=== PATIENT | male | born 1995 | race Caucasian/White ===

== ENCOUNTER 2021-09-09 19:02 | Outpatient (CLI) | payer MEDICAID | END 2021-09-09 19:03 | disposition critical access hospital (66) | LOC: EMS 19:02 | DX: R42 Dizziness and giddiness (principal); R55 Syncope and collapse; R61 Generalized hyperhidrosis; Z20.822 Contact with and (suspected) exposure to COVID-19 | CPT/HCPCS: A0425; A0427 ==

== ENCOUNTER 2021-09-09 19:38 | Emergency (ER) | payer MEDICAID ==
--- NOTE | 2021-09-09 21:19 | ED Physician Documentation ---
History of Present Illness - Stated complaint Stated Complaint: NEAR SYNCOPE - Chief complaint Chief Complaint: General - History obtained from History obtained from: Patient - History of Present Illness Timing: How many days ago (3) - Additonal information Additional information: 25-year-old Parth Byers developed COVID for second time 2 weeks ago he has tested negative about 6 days ago and he has developed some fatigue and exertional dyspnea and is feeling lightheaded and dizzy. He is wondering if either has a bit of a panic attack or if he might have pericarditis. He denies any chest pain he does acknowledge shortness of breath and easily fatigued. He has been immunized previously and when he had COVID the first time he had a problem with headaches this time around he had fever and aches. Review of Systems Constitutional: denies: Fever Eyes: denies: Decreased vision Ears: denies: Ear pain Nose: denies: Rhinorrhea / runny nose, Congestion Throat: denies: Sore throat Cardiac: denies: Chest pain / pressure, Palpitations, Pedal edema, Calf pain Respiratory: reports: Dyspnea. denies: Cough, Hemoptysis, Wheezing GI: denies: Abdominal Pain, Nausea, Vomiting, Constipation, Diarrhea : denies: Dysuria, Frequency Skin: denies: Rash Musculoskeletal: denies: Neck pain, Back pain, Extremity pain Neurologic: reports: Headache. denies: Generalized weakness, Focal weakness, Numbness, Head injury, LOC PD PAST MEDICAL HISTORY - Allergies Allergies/Adverse Reactions: Allergies Allergy/AdvReac Type Severity Reaction Status Date / Time No Known Drug Allergies Allergy Verified 09/09/21 19:36 PD ED PE NORMAL - Vitals Vital signs reviewed: Yes (hypertensive mild ) - General General: Alert and oriented X 3, No acute distress, Well developed/nourished - HEENT HEENT: Atraumatic, PERRL, EOMI - Neck Neck: Supple, no meningeal sign, No bony TTP - Cardiac Cardiac: RRR, No murmur - Respiratory Respiratory: No respiratory distress, Clear bilaterally - Abdomen Abdomen: Normal bowel sounds, Soft, Non tender, Non distended, No organomegaly - Back Back: No CVA TTP, No spinal TTP - Derm Derm: Normal color, Warm and dry, No rash - Extremities Extremities: No deformity, No edema - Neuro Neuro: Alert and oriented X 3, despatching and receiving clerk 2-12 intact, No motor deficit, No sensory deficit, Normal speech Eye Opening: Spontaneous Motor: Obeys Commands Verbal: Oriented GCS Score: 15 - Psych Psych: Normal mood, Normal affect Results - Vitals Vitals: Vital Signs - 24 hr 09/09/21 09/09/21 09/09/21 19:32 21:11 21:38 Temperature 36.4 C L Heart Rate 88 80 79 Respiratory 16 18 16 Rate Blood Pressure 135/76 H 127/85 H 127/85 H O2 Saturation 99 98 99 09/09/21 22:40 Temperature Heart Rate Respiratory 16 Rate Blood Pressure O2 Saturation Oxygen O2 Source Room air - EKG (time done) 2139 Rate: Rate (enter#) (71) [place]: Normal Ischemia: Normal ST segments Compare to prior EKG: Old EKG unavailable Computer interpretation: Agree with computer - Labs Labs: Laboratory Tests 09/09/21 09/09/21 09/09/21 21:24 21:24 21:24 WBC 6.2 RBC 5.40 Hgb 16.0 Hct 46.3 MCV 85.7 MCH 29.6 MCHC 34.6 RDW 11.9 L Plt Count 399 MPV 9.8 Neut # (Auto) 4.2 Lymph # (Auto) 1.4 L [place] # (Auto) 0.6 Eos # (Auto) 0.1 Baso # (Auto) 0.0 Absolute Nucleated RBC 0.00 Nucleated RBC % 0.0 Sodium 139 Potassium 3.8 Chloride 101 Carbon Dioxide 29 Anion Gap 9.0 BUN 17 Creatinine 0.9 Estimated GFR (MDRD) 105 Glucose 111 H Calcium 10.0 Total Bilirubin 0.7 AST 22 ALT 28 Alkaline Phosphatase 76 Troponin I High Sens 2.4 Total Protein 7.5 Albumin 4.9 Globulin 2.6 Albumin/Globulin Ratio 1.9 Lipase 27 - Rads (name of study) chest Radiology: Prelim report reviewed (Impression: 1. No acute cardiopulmonary disease.), EMP read indepedently, See rad report Procedures - Bedside sono Bedside sono by EMP: With use bedside ultrasound the heart is imaged there is no evidence of pericardial effusion. - IVC sono (time) 2117 Bedside IVC sono: IVC measures (cm) (1.22), Dehydration (est 1 liter deficit) PD MEDICAL DECISION MAKING - ED course Complexity details: reviewed results, re-evaluated patient, considered differential, d/w patient ED course: 25-year-old male who is post COVID has symptoms of anxiety chest pain lightheadedness and dizziness as well as fatigue. He has tested negative about 6 days ago. He appears dehydrated and is administered a liter of saline. A chest x-ray is done as well as blood work and electrocardiogram and a troponin these are all normal. I was able to evaluate the patient's heart at the bedside for pericardial effusion and none was found. Departure - Departure Disposition: 01 Home, Self Care Clinical Impression: Dehydration, Post-COVID chronic fatigue Condition: Stable Instructions: ED Dehydration Follow-Up: Primary/[facility] [place] [Provider Group] Comments: Parth today we found that you were dehydrated and we have provided intravenous fluid. It is not uncommon to have excessive fatigue and a variety of symptoms after having COVID. Symptoms can last for more than 6 months and can be quite variable. May develop a problem with headaches, sleep disturbance, fatigue, chest pain and anxiety.The symptoms will eventually resolve. Discharge Date/Time: 09/09/21 22:40
[2021-09-09 21:20] VITALS: BP 127/85
[2021-09-09] MEDS ORDERED: SODIUM CHLORIDE 0.9% 1,000 ML IV STA (21:23)
[2021-09-09 21:30] LABS: BASOPHILS % (AUTO) 0.5 %; EOSINOPHILS # (AUTO) 0.1 10^3/uL (0.0-0.7); EOSINOPHILS % (AUTO) 0.8 %; HCT - HEMATOCRIT 46.3 % (42.0-52.0); LYMPHOCYTES # (AUTO) 1.4 10^3/uL (1.5-3.5); LYMPHOCYTES % (AUTO) 21.9 %; MEAN CORPUSCULAR HEMOGLOBIN 29.6 pg (27.0-31.0); MEAN CORPUSCULAR HGB CONC 34.6 g/dL (32.0-36.0); MEAN CORPUSCULAR VOLUME 85.7 fL (80.0-94.0); MEAN PLATELET VOLUME 9.8 fL (7.4-11.4); MONOCYTES # (AUTO) 0.6 10^3/uL (0.0-1.0); MONOCYTES % (AUTO) 9.5 %; NEUTROPHILS # (AUTO) 4.2 10^3/uL (1.5-6.6); NEUTROPHILS % (AUTO) 67.1 %; PLT - PLATELET COUNT 399 10^3/uL (130-450); RED CELL DISTRIBUTION WIDTH 11.9 % (12.0-15.0); WHITE BLOOD COUNT 6.2 x10^3/uL (4.8-10.8)
[2021-09-09 21:45] LABS: ALBUMIN 4.9 g/dL (3.2-5.5); ALBUMIN/GLOBULIN RATIO 1.9 (1.0-2.2); BILIRUBIN,TOTAL 0.7 mg/dL (0.2-1.0); CREATININE 0.9 mg/dL (0.6-1.2); POTASSIUM 3.8 mmol/L (3.5-5.0); TOTAL PROTEIN 7.5 g/dL (6.7-8.2)
--- NOTE | 2021-09-09 22:46 | XRAY Report ---
PROCEDURE: Chest 1 View X-Ray INDICATIONS: chest pain TECHNIQUE: One view of the chest was acquired. COMPARISON: None. FINDINGS: Surgical changes and devices: None. Lungs and pleura: No pleural effusions or pneumothorax. Lungs are clear. Mediastinum: Mediastinal contours appear normal. Heart size is normal. Bones and chest wall: No suspicious bony lesions. Overlying soft tissues appear unremarkable. IMPRESSION: 1. No acute cardiopulmonary disease. Reviewed by: Darnell Burch MD on 09/09/2021 10:45 PM PDT Approved by: Darnell Burch MD on 09/09/2021 10:45 PM PDT Station ID: [id number]
== END 2021-09-09 22:40 | disposition home or self-care (01) ==
LOC: ED 19:38
DX: E86.0 Dehydration (principal); R53.83 Other fatigue
CPT/HCPCS: 36415; 80053; 83690; 84484; 85025; 93005; 99284

== ENCOUNTER 2022-02-24 17:33 | Outpatient (CLI) | payer MEDICAID ==
[2022-02-24 17:52] LABS: BASOPHILS # (AUTO) 0.1 10^3/uL (0.0-0.1); BASOPHILS % (AUTO) 0.8 %; EOSINOPHILS # (AUTO) 0.1 10^3/uL (0.0-0.7); EOSINOPHILS % (AUTO) 1.7 %; HCT - HEMATOCRIT 45.4 % (42.0-52.0); HGB - HEMOGLOBIN 15.4 g/dL (14.0-18.0); LYMPHOCYTES # (AUTO) 1.6 10^3/uL (1.5-3.5); LYMPHOCYTES % (AUTO) 27.1 %; MEAN CORPUSCULAR HEMOGLOBIN 29.9 pg (27.0-31.0); MEAN CORPUSCULAR HGB CONC 33.9 g/dL (32.0-36.0); MEAN CORPUSCULAR VOLUME 88.2 fL (80.0-94.0); MEAN PLATELET VOLUME 10.2 fL (7.4-11.4); MONOCYTES # (AUTO) 0.6 10^3/uL (0.0-1.0); MONOCYTES % (AUTO) 9.9 %; NEUTROPHILS # (AUTO) 3.6 10^3/uL (1.5-6.6); NEUTROPHILS % (AUTO) 60.3 %; PLT - PLATELET COUNT 270 10^3/uL (130-450); RED BLOOD COUNT 5.15 10^6/uL (4.70-6.10)
[2022-02-24 18:10] LABS: ALBUMIN 4.9 g/dL (3.2-5.5); ALBUMIN/GLOBULIN RATIO 1.8 (1.0-2.2); ALKALINE PHOSPHATASE 65 IU/L (42-121); ALT ALANINE AMINOTRANSFERASE 18 IU/L (10-60); AST ASPARTATE AMINOTRANSFERASE 15 IU/L (10-42); BILIRUBIN,TOTAL 0.4 mg/dL (0.2-1.0); BUN - BLOOD UREA NITROGEN 21 mg/dL (6-20); CALCIUM 9.6 mg/dL (8.5-10.3); CARBON DIOXIDE - CO2 28 mmol/L (21-32); CHLORIDE 102 mmol/L (101-111); CHOLESTEROL 192 mg/dL; GFR - MDRD 92 (>89); GLUCOSE 99 mg/dL (70-100); HDL CHOLESTEROL 63 mg/dL; LDL CHOLESTEROL,CALCULATED 112 mg/dL; LDL/HDL RATIO 1.8 (<3.6); LIPASE 27 U/L (22-51); POTASSIUM 3.9 mmol/L (3.5-5.0); SODIUM 138 mmol/L (135-145); TOTAL PROTEIN 7.7 g/dL (6.7-8.2); TRIGLYCERIDES 84 mg/dL; VLDL CHOLESTEROL 17 mg/dL
[2022-02-24 20:56] LABS: ESTIMATED AVERAGE GLUCOSE 111 mg/dL (70-100); HEMOGLOBIN A1c% 5.5 % (4.27-6.07)
== END 2022-02-24 17:34 | disposition home or self-care (01) ==
LOC: LAB 17:33
PROVIDERS: ATTEND Registered Nurse
DX: R10.0 Acute abdomen (principal)
CPT/HCPCS: 36415; 80053; 80061; 83036; 83690; 83721; 85025

== ENCOUNTER 2022-02-27 09:09 | Emergency (ER) | payer MEDICAID ==
[2022-02-27 10:57] LABS: BILIRUBIN,URINE NEGATIVE (NEGATIVE); GLUCOSE, URINE (UA) NEGATIVE (NEGATIVE); KETONES,URINE (UA) NEGATIVE (NEGATIVE); LEUKOCYTE ESTERASE, URINE NEGATIVE (NEGATIVE); NITRITE,URINE NEGATIVE (NEGATIVE); OCCULT BLOOD,URINE NEGATIVE (NEGATIVE); PROTEIN,URINE NEGATIVE (NEGATIVE); UROBILINOGEN,URINE 0.2 (NORMAL) E.U./dL (NORMAL)
[2022-02-27 10:58] LABS: CLARITY,URINE CLEAR (CLEAR)
[2022-02-27 12:39] VITALS: BP 147/97
--- NOTE | 2022-02-27 12:50 | ED Physician Documentation ---
History of Present Illness - Stated complaint Stated Complaint: LT SIDE PX/LOW BP - Chief complaint Chief Complaint: Abd Pain - History obtained from History obtained from: Patient - Additonal information Additional information: This is a 26-year-old male with no significant past medical history who presents with intermittent left mid back pain over the course last several months. He cannot identify any alleviating or exacerbating or triggering causes. He states he does not feel like it is in the muscle but more deep inside the upper part of the abdomen. He has seen his PCP for this, most recently a few days ago and they ran a set of labs which I was able to review and were normal. They discussed potential causes and organ to do a further work-up but patient states he had a bout of the pain this morning that was worse so he got concerned and came in. He has not had any associated symptoms such as fever chills, chest pain or difficulty breathing, cough or other URI symptoms, nausea, vomiting, diarrhea, constipation, dysuria or other urinary symptoms. No history of kidney stones, no history of back injuries or back strain, no history of pneumonia, no history of PE or risk factors for pulmonary embolus.He has not attempted any medication for this pain. Review of Systems Ten Systems: 10 systems reviewed and negative PD PAST MEDICAL HISTORY - Past Medical History Past Medical History: No - Allergies Allergies/Adverse Reactions: Allergies Allergy/AdvReac Type Severity Reaction Status Date / Time No Known Drug Allergies Allergy Verified 02/27/22 09:18 - Social History Does the pt smoke?: No Smoking Status: Never smoker PD ED PE NORMAL - Vitals Vital signs reviewed: Yes - General General: Alert and oriented X 3, No acute distress, Well developed/nourished - HEENT HEENT: Atraumatic, Pharynx benign - Cardiac Cardiac: RRR, No murmur - Respiratory Respiratory: No respiratory distress, Clear bilaterally - Abdomen Abdomen: Normal bowel sounds, Soft, Non tender, Non distended - Back Back: No CVA TTP, No spinal TTP, Other (Was not able to reproduce the pain with palpation at this time.) - Derm Derm: Normal color, Warm and dry, No rash - Extremities Extremities: No deformity, No edema - Neuro Neuro: Alert and oriented X 3 Eye Opening: Spontaneous Motor: Obeys Commands Verbal: Oriented GCS Score: 15 - Psych Psych: Normal mood, Normal affect Results - Vitals Vitals: Vital Signs - 24 hr 02/27/22 02/27/22 09:13 12:38 Heart Rate 70 72 Respiratory 16 20 Rate Blood Pressure 127/85 H 147/97 H O2 Saturation 99 100 Oxygen O2 Source Room air - Labs Labs: Laboratory Tests 02/27/22 10:51 Urine Color LIGHT YELLOW Urine Clarity CLEAR Urine pH 6.0 Ur Specific [place] 1.010 Urine Protein NEGATIVE Urine Glucose (UA) NEGATIVE Urine Ketones NEGATIVE Urine Occult Blood NEGATIVE Urine Nitrite NEGATIVE Urine Bilirubin NEGATIVE Urine Urobilinogen 0.2 (NORMAL) Ur Leukocyte Esterase NEGATIVE Ur Microscopic Review NOT INDICATED Urine Culture Comments NOT INDICATED PD MEDICAL DECISION MAKING - ED course Complexity details: reviewed results, re-evaluated patient, considered differential, d/w patient ED course: This is a generally healthy 26-year-old male who presented with left mid back pain/torso pain for several months intermittently. The patient had a work-up recently at his PCP office and I was able to review those labs from a couple days ago which are all completely normal. Patient's urinalysis today is normal. His pain is not reproducible at this time but feels deeper inside the abdomen therefore we did consider kidney stone or pyelonephritis as a possible source. We obtained a CT abdomen pelvis noncontrast which was negative for any kidney stones or other concerns, there is also no sign of cholelithiasis Which patient has been concerned about he had no pain over the right upper quadrant. No low suspicion for PE or pneumonia as patient is oxygenating well on room air, has not had any chest pain or respiratory distress and has no risk factors for PE. I suspect this is a muscle strain or pinched nerve and recommended supportive measures and follow-up with PCP for this ongoing issue. He was advised he can use a warm compress, light massage, ibuprofen and Tylenol for pain. I reviewed return precautions in detail with the patient. Departure - Departure Disposition: 01 Home, Self Care Clinical Impression: Thoracic back pain Qualifiers: Chronicity: acute Back pain laterality: left Qualified Code(s): M54.6 - Pain in thoracic spine Condition: Good Instructions: ED Sprain Thoracic Spine Comments: As we discussed, your labs from a couple of days ago are all reassuring and your CT today is normal without any signs of gallbladder issues or kidney stones. I suspect that you have a muscle strain or a pinched nerve and can try ibuprofen and Tylenol for pain. Please continue follow-up with your primary doctor for this issue. Discharge Date/Time: 02/27/22 13:51
--- NOTE | 2022-02-27 13:44 | CT Report ---
PROCEDURE: ABDOMEN/PELVIS WO INDICATIONS: left flank pain, r/o stones pls. TECHNIQUE: Noncontrast 5 mm thick sections acquired from the diaphragms to the symphysis. 5 mm coronal and sagi ttal reformats were then performed. For radiation dose reduction, the following was used: automated exposure control, adjustment of mA and/or kV according to patient size. COMPARISON: None. FINDINGS: Image quality: Excellent. ABDOMEN: Lung bases: Lung bases are clear. Heart size is normal. Solid organs: Liver and spleen are normal in size. Gallbladder normal. Pancreas is normal in conto urs. No adrenal nodules. Kidneys are normal in size, without hydronephrosis or nephrolithiasis. Peritoneum and bowel: Unenhanced bowel loops demonstrate normal wall thickness and caliber. No free fluid or air. Nodes and vessels: No retroperitoneal or mesenteric adenopathy by size criteria. Aorta and inferior vena cava are normal in caliber. Miscellaneous: No ventral hernias. PELVIS: Genitourinary: Bladder wall thickness is normal. Miscellaneous: No inguinal hernias or adenopathy. Bones: No suspicious bony lesions. No vertebral body compression fractures. IMPRESSION: No urinary tract calculus or finding of obstructive uropathy. Reviewed by: Renny Mohamud MD on 02/27/2022 1:43 PM PST Approved by: Renny Mohamud MD on 02/27/2022 1:43 PM PST Station ID: [id number]
== END 2022-02-27 13:51 | disposition home or self-care (01) ==
LOC: ED 09:09
DX: M54.6 Pain in thoracic spine (principal)
CPT/HCPCS: 81001; 81003; 87086; 99281; 99284

== ENCOUNTER 2022-08-04 16:36 | Outpatient (CLI) | payer BC, MEDICAID | END 2022-08-04 16:37 | disposition EMS.NT | LOC: EMS 16:36 | DX: R42 Dizziness and giddiness (principal); R07.9 Chest pain, unspecified; R11.0 Nausea ==

== ENCOUNTER 2023-03-16 10:27 | Outpatient (CLI) | payer OTHER ==
--- NOTE | 2023-03-16 11:04 | Sleep Patient Instructions ---
Sleep Center Visit Summary - Patient Visit Information Reason for Visit: Initial consult for evaluation of sleep disordered breathing and other sleep issues. - Patient Instructions Instructions Attached: Sleep Study Home Monitor, Sleep Study Additional Instructions: You will be completing a sleep study, either an in-lab polysomnography (PSG) or home sleep study (HST). You will follow-up in the sleep care office after the sleep study is completed to hear the results and talk about therapy, if needed. You will be called by our office staff to schedule this appointment, but you may contact us with any questions. - Clinic Information Contact: [facility] [address] [place] [id number] [email or web address] T: [phone]
--- NOTE | 2023-03-16 11:07 | SLEEP CARE CONSULTATION ---
Information from patient questionnaire entered by Hollie Arita. I have reviewed and concur with the information entered by Hollie Arita. This document represents the service I personally performed and the decisions made by me, Serenity Patino ARNP. History of Present Illness Service Date and Time: 03/16/2023 1027 Reason for Visit: New patient Chief Complaint: reports: Excessive daytime sleepiness, Fatigue Date of Onset: 2YRS Usual bedtime: 3AM Time it takes to fall asleep: 60MIN Snores at night: No Observed to quit breathing while asleep: No Number of times waking at night: 3 Reasons for waking at night: reports: Other (UNKNOWN) Toss, Turn, or Twitch while sleeping: Yes Recalls having dreams: Yes (has reoccuring dreams but no nightmares) Usually gets out of bed at: 12PM Feels refreshed in the morning: Yes (sometimes) Morning headache: No Sleepy or fatigued during the day: Yes Ever fallen asleep while driving: No (when working he did have drowsy driving) Takes day naps: Yes (1 time a week for about 30 minutes) Dreams during day naps: Yes Prior sleep studies: No Additional HPI information: I had the pleasure of seeing AKOSUA OSEGUERA today regarding the possibility of him having a sleep disorder. His current complaints are excessive daytime sleepiness and fatigue. He says he is having nerve issues with his legs and when he discussed with his primary they suggested looking at his sleep. He says has not been working in last 6 months. He says he stays up late and gets up late. He feels he has bad sleep hygiene. He is not feeling rested with he wakes up in the morning. He has "flare ups with nerves", he feels he has "whole body aches" and heart chest pain. He says it will spike his anxiety. He says his body is just fatigues and achy and he feels like he has the flus with theses nerve flares. The fatigue will persist even when the flare resolves. He feels it is debilitating. He can even feel short of air when moving. He denies this happening when laying down. He says it takes 30 minutes to 1 hour to fall asleep. He wakes up about 3 times a night for unknown reasons, toss/turning or getting hot. He as not been told he snores or has pauses in breathing. 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 Patient is Single and lives in . Have you smoked in the past 12 months: No Alcohol use: Yes Alcohol amount and frequency: occasionally go to bar, drinks too much; cut back recently Caffeine use: No Family History Family history of sleep disordered breathing: Yes Family Hx Sleep Apnea: Mother: Sleep apnea - Treated, Father: Sleep apnea - Untreated, Grandparent: Sleep apnea - Treated Allergies and Home Medications Known drug allergies: No Drug allergies reviewed: Yes Home medication list reviewed: Yes Allergy and home medication list: Allergies No Known Drug Allergies Allergy (Verified 03/15/23 08:56) Home Medications Medication Instructions Recorded Confirmed Last Taken Type Magnesium See Rx Instructions .ROUTE .COMPLEX 03/16/23 03/16/23 Unknown History Riboflavin (Vitamin B2) See Rx Instructions .ROUTE .COMPLEX 03/16/23 03/16/23 Unknown History [Riboflavin] Review of Systems Weight loss over past 5 years: 25 Cardiovascular: reports: chest pain. denies: high blood pressure Respiratory: reports: shortness of breath Gastrointestinal: reports: heartburn Neurological: reports: headaches, disorientation. denies: head trauma Psychiatric: reports: anxiety Ear/Nose/Throat: reports: sinus problems, wisdom teeth removed. denies: injury to nose, tonsillectomy Endocrine: reports: sluggishness, unexplained weakness Musculoskeletal: reports: neck pain Immunologic: reports: sneezing Physical Exam Vital signs obtained and entered by: HOLLIE Dunbar MA Blood Pressure: 116/73 (RIGHT ARM) Cuff size: regular Heart Rate: 62 O2 Saturation: 100 Height: 5 ft 10 in Weight: 197 lb 12.8 oz (with boots/clothes on) Body Mass Index: 28.3 BMI Classification: Overweight Neck circumference: 16.25 Mouth and throat: narrow oropharynx Soft palate: long Hard palate: normal Uvula: normal Uvula visualization: 25% Mallampati Class III Tongue: enlarged in size with teeth bush on lateral edges Tonsils: 2+ Neck: normal w/o lymphadenopathy or thyromegaly Heart: regular rate and rhythm Lungs: clear bilaterally Impression and Plan 1. Suspected Obstructive Sleep Apnea-Hypopnea Syndrome, as suggested by a history of unrefreshed sleep, cognitive impairment, and excessive daytime sleepiness. Narrow oropharynx and obesity are common predisposing factors for obstructive sleep apnea-hypopnea syndrome. I recommend proceeding to polysomnography to confirm the diagnosis and to assess severity. If the patient has significant sleep disordered breathing, a manual CPAP titration study will also be performed to find the optimal treatment pressure. I informed the patient of what the sleep studies involve and after some discussion, obtained agreement to proceed. The pathophysiology of obstructive sleep apnea-hypopnea syndrome was discussed with the patient and health risks of cardiovascular and cerebrovascular disease if not treated. Risks of drowsy driving discussed in detail and patient advised to avoid long distance driving and to bleach boiler puller at the first sign of drowsiness. Patient agreed to plan. * Schedule polysomnography. * Avoid long distance driving or driving when feeling sleepy. * Avoid alcohol, sedative and muscle relaxant around bedtime. * Attempt to lose weight. * Review instructions provided by trained office staff on how to prepare for the sleep study. * Return for follow-up after sleep study completed. Counseling Topics: Weight loss health impact Plan: PSG Visit Type: In Office Time Spent with Patient (minutes): 30 Provider Statement: I spent 100% of the Face to Face Visit with the patient with greater than 50% spent counseling the patient and coordination of care.
[2023-03-16 11:10] VITALS: BP 116/73; O2SAT 100
== END 2023-03-16 10:28 | disposition home or self-care (01) ==
LOC: SC 10:27
PROVIDERS: ATTEND Nurse Practitioner Family
DX: G47.10 Hypersomnia, unspecified (principal); R53.83 Other fatigue; G47.8 Other sleep disorders; R41.89 Other symptoms and signs involving cognitive functions and awareness; E66.3 Overweight; Z68.28 Body mass index [BMI] 28.0-28.9, adult
CPT/HCPCS: 99203; 99212